=== PATIENT | female | born 1970 | race Caucasian/White ===

== ENCOUNTER 2022-06-25 12:02 | Emergency (ER) | payer BC, MEDICAID, OTHER ==
[~2022-06-25] VITALS: Ht 167.6 cm; Wt 74.8 kg
[~2022-06-25 12:02] MED LIST: [UNRECOGNIZED DRUG - CODE] PO
[2022-06-25 12:13] VITALS: BP 117/67
--- NOTE | 2022-06-25 12:17 | NUR ---
PT AMB TO BED 8.
--- NOTE | 2022-06-25 12:23 | NUR ---
DR WARREN AT BEDSIDE EVALUATING PT
[2022-06-25] MEDS ORDERED: KETOROLAC 60 MG/2 ML VIAL IM ONE (12:30)
[2022-06-25 12:49] LABS: BASOPHILS # (AUTO) 0.1 K/uL (0.00-0.22); BASOPHILS % (AUTO) 0.9 % (0.0-2.0); EOSINOPHILS # (AUTO) 0.2 K/uL (0-0.4); HEMATOCRIT 42.1 % (36-48); HEMOGLOBIN 14.3 g/dL (12.0-16.0); LYMPHOCYTES # (AUTO) 2.6 K/uL (2.5-16.5); LYMPHOCYTES % (AUTO) 35.1 % (20.5-51.1); MEAN CORPUSCULAR HEMOGLOBIN 30 pg (27-31); MEAN CORPUSCULAR HGB CONC 34 g/dL (33-37); MEAN CORPUSCULAR VOLUME 88.7 fL (80-94); MONOCYTES # (AUTO) 0.3 K/uL (0.8-1.0); MONOCYTES % (AUTO) 4.5 % (1.7-9.3); NEUTROPHILS # (AUTO) 4.2 K/uL (1.8-7.7); NEUTROPHILS % (AUTO) 56.5 % (42.2-75.2); PLATELET COUNT (AUTO) 274 K/uL (140-450); RED BLOOD CELL COUNT(AUTO) 4.75 MIL/uL (4.20-5.40); RED CELL DISTRIBUTION WIDTH 12.9 % (11.6-13.7); WHITE BLOOD COUNT (AUTO) 7.5 K/uL (4.8-10.8)
--- NOTE | 2022-06-25 13:00 | NUR ---
52YO FEMALE PT C/O INCREASED INTERMITTENT 8/10 CHEST PALPITATIONS XTODAY. STATES INITIAL ONSET X1WEEK. EPISODES LASTING 20MIN W/ RADIATION TO BACK. RELIEF AFTER TAKING RX GIVEN BY SON. DENIES RADIATION, N/V/D , SOB, FEVR OR CHILLS. PT AAOX4, RESPIRATIONS EVEN AND UNLABORED. 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 HX:DENIES NKA
[2022-06-25 13:09] LABS: ALBUMIN 3.2 g/dL (3.4-5.0); CARBON DIOXIDE 27.8 mmol/L (21-32); CREATININE 0.8 mg/dL (0.6-1.3); POTASSIUM 3.8 mmol/L (3.5-5.1); TOTAL BILIRUBIN 0.6 mg/dL (0.0-1.0)
[2022-06-25] MEDS ORDERED: NAPR-1704 PO (13:23)
[2022-06-25 13:38] VITALS: BP 117/67
--- NOTE | 2022-06-25 13:38 | NUR ---
Patient discharged with v/s stable. Written and verbal after care instructions FOR NON SPECIFIC CHEST PAIN given and explained. Patient alert, oriented and verbalized understanding of instructions. Ambulatory with steady gait. All questions addressed prior to discharge. ID band removed. Patient advised to follow up with PMD. Rx of NAPROXEN given. Opportunity to ask questions provided and answered.
--- NOTE | 2022-06-25 13:39 | NUR ---
The patient's care was reviewed and supervised by Gale Hendrix RN.
== END 2022-06-25 13:38 | disposition home or self-care (01) ==
LOC: MED 12:02
DX: R07.9 Chest pain, unspecified (principal)
CPT/HCPCS: 36415; 71045; 80053; 81002; 81025; 83880; 84484; 85025; 93005; 99285; Q0092; J1885

== ENCOUNTER 2022-07-02 15:14 | Inpatient (IN) | payer OTHER ==
[~2022-07-02] VITALS: Ht 160 cm; Wt 65.8 kg
[~2022-07-02 15:14] MED LIST changes: +NAPR-1704 PO
[2022-07-02 15:24] VITALS: BP 112/90
[2022-07-02 16:01] LABS: BASOPHILS # (AUTO) 0.1 K/uL (0.00-0.22); BASOPHILS % (AUTO) 1.5 % (0.0-2.0); EOSINOPHILS # (AUTO) 0.2 K/uL (0-0.4); EOSINOPHILS % (AUTO) 1.8 % (0.0-4.0); HEMOGLOBIN 16.6 g/dL (12.0-16.0); LYMPHOCYTES # (AUTO) 1.8 K/uL (2.5-16.5); LYMPHOCYTES % (AUTO) 20.6 % (20.5-51.1); MEAN CORPUSCULAR HEMOGLOBIN 31 pg (27-31); MEAN CORPUSCULAR HGB CONC 34 g/dL (33-37); MONOCYTES # (AUTO) 0.7 K/uL (0.8-1.0); MONOCYTES % (AUTO) 7.5 % (1.7-9.3); NEUTROPHILS # (AUTO) 6.1 K/uL (1.8-7.7); NEUTROPHILS % (AUTO) 68.6 % (42.2-75.2); PLATELET COUNT (AUTO) 364 K/uL (140-450); RED BLOOD CELL COUNT(AUTO) 5.44 MIL/uL (4.20-5.40); RED CELL DISTRIBUTION WIDTH 13.7 % (11.6-13.7); WHITE BLOOD COUNT (AUTO) 8.9 K/uL (4.8-10.8)
[2022-07-02 16:26] LABS: ALBUMIN 3.5 g/dL (3.4-5.0); ANION GAP 18.1 (8-16); CARBON DIOXIDE 26.5 mmol/L (21-32); CREATININE 0.6 mg/dL (0.6-1.3); POTASSIUM 3.6 mmol/L (3.5-5.1); TOTAL BILIRUBIN 16.5 mg/dL (0.0-1.0)
[2022-07-02] MEDS ORDERED: MORPHINE SULFATE 4 MG/ML SYR IVP PRN (21:35)
[2022-07-02] MEDS ORDERED: ACETAMINOPHEN 325 MG TAB PO PRN (21:35)
[2022-07-02] MEDS ORDERED: ONDANSETRON 4 MG/2 ML VIAL IVP PRN (21:35)
[2022-07-02] MEDS ORDERED: MAG SULF 2000 MG/WATER PREMIX 50 ML IV PRN (21:35)
[2022-07-02] MEDS ORDERED: POTASSIUM CHLORIDE 10 MEQ TABER PO PRN (21:35)
[2022-07-02] MEDS ORDERED: HYDROcodone/APAP 5/325 MG 1 TAB TAB PO PRN (21:35)
[2022-07-02] MEDS ORDERED: MAGNESIUM OXIDE 400 MG TAB PO PRN (21:35)
[2022-07-02] MEDS ORDERED: KCL 20 MEQ/WATER INJ PREMIX 200 ML IV PRN (21:35)
[2022-07-02] MEDS: NACL 0.9% 1,000 ML IV SCH (22:38)
[2022-07-03 07:46] LABS: BASOPHILS # (AUTO) 0.2 K/uL (0.00-0.22); BASOPHILS % (AUTO) 2.9 % (0.0-2.0); EOSINOPHILS # (AUTO) 0.2 K/uL (0-0.4); EOSINOPHILS % (AUTO) 3.3 % (0.0-4.0); HEMATOCRIT 43.3 % (36-48); HEMOGLOBIN 14.7 g/dL (12.0-16.0); LYMPHOCYTES # (AUTO) 1.8 K/uL (2.5-16.5); LYMPHOCYTES % (AUTO) 25.8 % (20.5-51.1); MEAN CORPUSCULAR HEMOGLOBIN 30 pg (27-31); MEAN CORPUSCULAR HGB CONC 34 g/dL (33-37); MONOCYTES # (AUTO) 0.6 K/uL (0.8-1.0); MONOCYTES % (AUTO) 8.3 % (1.7-9.3); NEUTROPHILS # (AUTO) 4.2 K/uL (1.8-7.7); NEUTROPHILS % (AUTO) 59.7 % (42.2-75.2); PLATELET COUNT (AUTO) 308 K/uL (140-450); RED BLOOD CELL COUNT(AUTO) 4.86 MIL/uL (4.20-5.40); RED CELL DISTRIBUTION WIDTH 13.9 % (11.6-13.7); WHITE BLOOD COUNT (AUTO) 7.1 K/uL (4.8-10.8)
[2022-07-03] MEDS ORDERED: SUCCINYLCHOLINE CHLORIDE 200 MG/10 ML VIAL IVP ONE ×2 (08:56→09:00)
[2022-07-03] MEDS ORDERED: MIDAZOLAM 2 MG/2 ML VIAL ONE ×2 (08:56→09:00)
[2022-07-03] MEDS ORDERED: PROPOFOL 200 MG/20 ML VIAL IV ONE ×2 (08:56→09:00)
[2022-07-03] MEDS ORDERED: fentaNYL citrate 0.05 MG/ML VIAL ONE (08:56)
[2022-07-03] MEDS ORDERED: GLUCAGON 1 MG VIAL ONE ×2 (09:00→09:34)
[2022-07-03] MEDS ORDERED: SEVOFLURANE 250 ML BTL INH ONE (09:00)
[2022-07-03] MEDS ORDERED: DEXAMETHASONE 4 MG/ML VIAL ONE (09:00)
[2022-07-03 09:38] LABS: CARBON DIOXIDE 24.6 mmol/L (21-32); CREATININE 0.5 mg/dL (0.6-1.3); POTASSIUM 3.6 mmol/L (3.5-5.1)
[2022-07-03 09:39] LABS: ALBUMIN 2.8 g/dL (3.4-5.0); TOTAL BILIRUBIN 14.1 mg/dL (0.0-1.0)
[2022-07-03] MEDS: NACL 0.9% 1,000 ML IV SCH (10:05)
[2022-07-03 12:00] VITALS: BP 121/62
[2022-07-03 13:05] LABS: MAGNESIUM 1.9 mg/dL (1.8-2.4)
[2022-07-04] VITALS: BP 115/59
[2022-07-04] MEDS: NACL 0.9% 1,000 ML IV SCH ×3 (00:32→23:23)
[2022-07-04 04:00] VITALS: BP 110/50
[2022-07-04 07:40] LABS: BASOPHILS # (AUTO) 0.1 K/uL (0.00-0.22); BASOPHILS % (AUTO) 1.5 % (0.0-2.0); EOSINOPHILS # (AUTO) 0.2 K/uL (0-0.4); EOSINOPHILS % (AUTO) 2.1 % (0.0-4.0); HEMATOCRIT 38.6 % (36-48); HEMOGLOBIN 13.2 g/dL (12.0-16.0); LYMPHOCYTES % (AUTO) 31.2 % (20.5-51.1); MEAN CORPUSCULAR HEMOGLOBIN 31 pg (27-31); MEAN CORPUSCULAR HGB CONC 34 g/dL (33-37); MEAN CORPUSCULAR VOLUME 90.3 fL (80-94); MONOCYTES # (AUTO) 0.6 K/uL (0.8-1.0); MONOCYTES % (AUTO) 6.6 % (1.7-9.3); NEUTROPHILS # (AUTO) 5.7 K/uL (1.8-7.7); NEUTROPHILS % (AUTO) 58.6 % (42.2-75.2); PLATELET COUNT (AUTO) 291 K/uL (140-450); RED BLOOD CELL COUNT(AUTO) 4.27 MIL/uL (4.20-5.40); RED CELL DISTRIBUTION WIDTH 13.9 % (11.6-13.7); WHITE BLOOD COUNT (AUTO) 9.8 K/uL (4.8-10.8)
[2022-07-04 08:00] VITALS: BP 125/64
[2022-07-04 08:28] LABS: ALBUMIN 2.5 g/dL (3.4-5.0); CARBON DIOXIDE 26.8 mmol/L (21-32); CREATININE 0.7 mg/dL (0.6-1.3); MAGNESIUM 1.7 mg/dL (1.8-2.4); POTASSIUM 3.8 mmol/L (3.5-5.1); TOTAL BILIRUBIN 7.4 mg/dL (0.0-1.0)
[2022-07-04 16:00] VITALS: BP 103/65
[2022-07-05 01:29] VITALS: BP 107/52
[2022-07-05 07:46] LABS: BASOPHILS # (AUTO) 0.2 K/uL (0.00-0.22); BASOPHILS % (AUTO) 3.1 % (0.0-2.0); EOSINOPHILS # (AUTO) 0.3 K/uL (0-0.4); EOSINOPHILS % (AUTO) 3.9 % (0.0-4.0); HEMATOCRIT 38.6 % (36-48); HEMOGLOBIN 13.2 g/dL (12.0-16.0); LYMPHOCYTES # (AUTO) 2.4 K/uL (2.5-16.5); LYMPHOCYTES % (AUTO) 33.3 % (20.5-51.1); MEAN CORPUSCULAR HEMOGLOBIN 31 pg (27-31); MEAN CORPUSCULAR HGB CONC 34 g/dL (33-37); MEAN CORPUSCULAR VOLUME 89.7 fL (80-94); MONOCYTES # (AUTO) 0.5 K/uL (0.8-1.0); MONOCYTES % (AUTO) 7.3 % (1.7-9.3); NEUTROPHILS # (AUTO) 3.7 K/uL (1.8-7.7); NEUTROPHILS % (AUTO) 52.4 % (42.2-75.2); PLATELET COUNT (AUTO) 286 K/uL (140-450); RED BLOOD CELL COUNT(AUTO) 4.31 MIL/uL (4.20-5.40); RED CELL DISTRIBUTION WIDTH 13.6 % (11.6-13.7); WHITE BLOOD COUNT (AUTO) 7.1 K/uL (4.8-10.8)
[2022-07-05 08:00] VITALS: BP 113/57
[2022-07-05 08:26] LABS: ALBUMIN 2.5 g/dL (3.4-5.0); CARBON DIOXIDE 26.6 mmol/L (21-32); CREATININE 0.6 mg/dL (0.6-1.3); MAGNESIUM 1.8 mg/dL (1.8-2.4); POTASSIUM 3.6 mmol/L (3.5-5.1); TOTAL BILIRUBIN 5.4 mg/dL (0.0-1.0)
[2022-07-05] MEDS: NACL 0.9% 1,000 ML IV SCH (12:05)
[2022-07-05 15:06] VITALS: BP 113/57
== END 2022-07-05 16:54 | disposition home or self-care (01) ==
LOC: MED 15:14 → MMU 21:36 → MTU 07-03 11:20
PROVIDERS: ADMIT Hospitalist; ATTEND Hospitalist
PROC: 0F798ZZ Dilation of Common Bile Duct, Via Natural or Artificial Opening Endoscopic (ICD-10-PCS; 2022-07-03)
PROC: BF101ZZ Fluoroscopy of Bile Ducts using Low Osmolar Contrast (ICD-10-PCS; 2022-07-03)
PROC: 0FC98ZZ Extirpation of Matter from Common Bile Duct, Via Natural or Artificial Opening Endoscopic (ICD-10-PCS; principal; 2022-07-03 09:00)
DX: K80.51 Calculus of bile duct without cholangitis or cholecystitis with obstruction (principal); E87.1 Hypo-osmolality and hyponatremia; E87.8 Other disorders of electrolyte and fluid balance, not elsewhere classified; Z20.822 Contact with and (suspected) exposure to COVID-19; R74.01 Elevation of levels of liver transaminase levels; E80.6 Other disorders of bilirubin metabolism; Z90.49 Acquired absence of other specified parts of digestive tract
CPT/HCPCS: 36415; 74330; 76705; 80053; 83690; 83735; 85025; 87081; 99285; C1727; C1769; C1773; J0330; J1100; J1610; J2250; J2270; J2704; J3010; Q0092; Q9967

== ENCOUNTER 2022-08-14 15:50 | Emergency (ER) | payer OTHER ==
[~2022-08-14] VITALS: Ht 157.5 cm; Wt 69.9 kg
[2022-08-14 16:00] VITALS: BP 130/76
[2022-08-14] MEDS ORDERED: DICYCLOMINE HCL LIQUID 20 MG, ALUMINUM HYD/MAG/SIMETHICONE 30 ML, LIDOCAINE VISCOUS 2% ... PO ONE ×3 (16:10)
[2022-08-14] MEDS ORDERED: ALUMINUM HYD/MAG/SIMETHICONE 30 ML UDC ONE (16:13)
[2022-08-14] MEDS ORDERED: DICYCLOMINE HCL LIQUID 10 MG/5 ML UDC ONE (16:13)
--- NOTE | 2022-08-14 16:16 | NUR ---
PT AMBULATED TO BED 12
[2022-08-14 16:44] LABS: BASOPHILS # (AUTO) 0.1 K/uL (0.00-0.22); BASOPHILS % (AUTO) 1.1 % (0.0-2.0); EOSINOPHILS # (AUTO) 0.2 K/uL (0-0.4); EOSINOPHILS % (AUTO) 2.7 % (0.0-4.0); HEMOGLOBIN 14.6 g/dL (12.0-16.0); LYMPHOCYTES # (AUTO) 3.6 K/uL (2.5-16.5); LYMPHOCYTES % (AUTO) 41.1 % (20.5-51.1); MEAN CORPUSCULAR HEMOGLOBIN 30 pg (27-31); MEAN CORPUSCULAR HGB CONC 36 g/dL (33-37); MEAN CORPUSCULAR VOLUME 85.7 fL (80-94); MONOCYTES # (AUTO) 0.5 K/uL (0.8-1.0); MONOCYTES % (AUTO) 5.8 % (1.7-9.3); NEUTROPHILS # (AUTO) 4.3 K/uL (1.8-7.7); NEUTROPHILS % (AUTO) 49.3 % (42.2-75.2); PLATELET COUNT (AUTO) 323 K/uL (140-450); RED BLOOD CELL COUNT(AUTO) 4.79 MIL/uL (4.20-5.40); WHITE BLOOD COUNT (AUTO) 8.7 K/uL (4.8-10.8)
[2022-08-14 17:07] LABS: ALBUMIN 4.3 g/dL (3.4-5.0); ANION GAP 14.1 (8-16); CARBON DIOXIDE 29.8 mmol/L (21-32); CREATININE 0.8 mg/dL (0.6-1.3); POTASSIUM 3.9 mmol/L (3.5-5.1); TOTAL BILIRUBIN 1.2 mg/dL (0.0-1.0)
--- NOTE | 2022-08-14 17:21 | NUR ---
Pt bib family for abd pain. Pain is constant and worse with movement. 8/10, sharp, intermittent, radiates throughout abd. Pt states she felt this pain before with a dx cholelithaiasis. No abnormalities in urination. Pt a/o x 4, vss, no ss of acute distress, breathing equal and unlabored. Pt on monitor with call light in reach.
[2022-08-14 18:27] VITALS: BP 111/60
[2022-08-14 18:55] LABS: BILIRUBIN,URINE NEGATIVE (NEGATIVE); BLOOD, URINE NEGATIVE (NEGATIVE); COLOR,URINE YELLOW (YELLOW); LEUKOCYTE ESTERASE ,URINE 2+ (NEGATIVE); NITRITE, URINE NEGATIVE (NEGATIVE); UGLUCOSE NEGATIVE (NEGATIVE)
[2022-08-14 19:07] LABS: APPEARANCE,URINE HAZY (CLEAR)
[2022-08-14 19:17] LABS: RBC,URINE NONE SEEN /HPF (0-5)
[2022-08-14] MEDS ORDERED: FAMO-92 PO (19:23)
[2022-08-14] MEDS ORDERED: CEPH-588 PO (19:23)
--- NOTE | 2022-08-14 20:01 | NUR ---
Patient discharged with v/s stable. Written and verbal after care instructions given and explained. Patient alert, oriented and verbalized understanding of instructions. Ambulatory with steady gait. All questions addressed prior to discharge. ID band removed. Patient advised to follow up with PMD. Rx of KELFEX AND PEPCID given. Patient educated on indication of medication including possible reaction and side effects. Opportunity to ask questions provided and answered.
== END 2022-08-14 22:21 | disposition home or self-care (01) ==
LOC: MED 15:50
DX: K29.70 Gastritis, unspecified, without bleeding (principal); N39.0 Urinary tract infection, site not specified
CPT/HCPCS: 36415; 76705; 80053; 81001; 83690; 85025; 87086; 99284; Q0092

== ENCOUNTER 2022-08-15 08:17 | Inpatient (IN) | payer OTHER ==
[~2022-08-15] VITALS: Ht 154.9 cm; Wt 68.5 kg
[~2022-08-15 08:17] MED LIST changes: +CEPH-588 PO; +FAMO-92 PO; -NAPR-1704 PO; -[UNRECOGNIZED DRUG - CODE] PO
[2022-08-15 08:25] VITALS: BP 143/72
[2022-08-15] MEDS ORDERED: MORPHINE SULFATE 4 MG/ML SYR IVP ONE (08:40)
--- NOTE | 2022-08-15 08:54 | NUR ---
Lab at bedside
[2022-08-15 09:07] LABS: APPEARANCE,URINE CLEAR (CLEAR); BILIRUBIN,URINE NEGATIVE (NEGATIVE); BLOOD, URINE NEGATIVE (NEGATIVE); COLOR,URINE YELLOW (YELLOW); LEUKOCYTE ESTERASE ,URINE NEGATIVE (NEGATIVE); NITRITE, URINE NEGATIVE (NEGATIVE); UGLUCOSE 3+ (NEGATIVE)
[2022-08-15 09:11] LABS: BASOPHILS # (AUTO) 0.1 K/uL (0.00-0.22); BASOPHILS % (AUTO) 0.9 % (0.0-2.0); EOSINOPHILS % (AUTO) 0.3 % (0.0-4.0); HEMATOCRIT 40.3 % (36-48); HEMOGLOBIN 14.2 g/dL (12.0-16.0); LYMPHOCYTES # (AUTO) 1.2 K/uL (2.5-16.5); LYMPHOCYTES % (AUTO) 12.2 % (20.5-51.1); MEAN CORPUSCULAR HEMOGLOBIN 30 pg (27-31); MEAN CORPUSCULAR HGB CONC 35 g/dL (33-37); MONOCYTES # (AUTO) 0.1 K/uL (0.8-1.0); MONOCYTES % (AUTO) 1.5 % (1.7-9.3); NEUTROPHILS # (AUTO) 8.2 K/uL (1.8-7.7); NEUTROPHILS % (AUTO) 85.1 % (42.2-75.2); PLATELET COUNT (AUTO) 330 K/uL (140-450); RED BLOOD CELL COUNT(AUTO) 4.69 MIL/uL (4.20-5.40); RED CELL DISTRIBUTION WIDTH 13.7 % (11.6-13.7); WHITE BLOOD COUNT (AUTO) 9.7 K/uL (4.8-10.8)
--- NOTE | 2022-08-15 09:14 | NUR ---
52 y/o F BIB self from home c/o epigastric pain x 2 days. A&Ox4, ambulatory, patient states 05/14, burning/constant, non-radiating pain to epigastric region. Tenderness to palp. Patient with associated nausea, vomiting. Denies diarrhea, constipation, chest pain, dizziness, headache, SOB. Pt seen at [facility] dischraged with RX pain medication, however, states "did not think it will work." visual effects artist in place. Bed locked in lowest position, side rails x1. PMH: cholecystectomy Meds: keflex NKDA
[2022-08-15 09:35] LABS: ALBUMIN 3.9 g/dL (3.4-5.0); ANION GAP 15.6 (8-16); CARBON DIOXIDE 25.9 mmol/L (21-32); CREATININE 0.8 mg/dL (0.6-1.3); POTASSIUM 3.5 mmol/L (3.5-5.1); TOTAL BILIRUBIN 2.9 mg/dL (0.0-1.0)
--- NOTE | 2022-08-15 09:59 | NUR ---
Pt to CT via norberto
--- NOTE | 2022-08-15 10:07 | NUR ---
Pt returned from CT
--- NOTE | 2022-08-15 10:08 | NUR ---
EMT at bedside for EKG
--- NOTE | 2022-08-15 11:02 | NUR ---
Pt states increased pain 05/14. Dr. Paula notified and order to be placed.
[2022-08-15] MEDS ORDERED: KETOROLAC 15 MG/ML VIAL IVP ONE (11:05)
--- NOTE | 2022-08-15 12:58 | NUR ---
Patient resting in position of comfort. monitor technician in place. Bed locked in lowest position, side rails x 1.
[2022-08-15] MEDS ORDERED: LORazepam 2 MG/ML VIAL IVP PRN (14:40)
[2022-08-15] MEDS ORDERED: ACETAMINOPHEN 325 MG TAB PO PRN (14:40)
[2022-08-15] MEDS ORDERED: ONDANSETRON 4 MG/2 ML VIAL IVP PRN (14:40)
--- NOTE | 2022-08-15 14:46 | NUR ---
Patient resting in high-fowlers position with monitoring manager in place. VSS. SpO2 noted at 91% on room air; placed on 2L NC. Patient denies respiratory distress. Bed locked in lowest position, side rails x 1.
--- NOTE | 2022-08-15 16:02 | NUR ---
Patient resting in position of comfort. belt conveyor drier in place. Patient denies pain at this time. Bed locked in lowest position, side rails x 1.
[2022-08-15] MEDS ORDERED: PIPERACILLIN/TAZOBACTAM 3.375 GM VIAL IV ONE ×2 (16:20→21:14)
[2022-08-15] MEDS: NACL 0.9% 1,000 ML IV SCH (16:28)
[2022-08-15] MEDS: PIPERACILLIN/TAZOBACTAM 3.375 GM in DEXTROSE 5% 50 ML IV SCH ×2 (16:28→21:29)
--- NOTE | 2022-08-15 18:26 | NUR ---
Pt in semi-fowlers position. 3rd pressman in place. Denies pain at this time. Bed locked in lowest position, side rails x 1.
--- NOTE | 2022-08-15 19:14 | NUR ---
Pt requesting pain medication for right lower back pain 01/12. PRN orders to be given.
[2022-08-15] MEDS: MORPHINE SULFATE 2 MG/ML SYR IVP PRN (19:19)
--- NOTE | 2022-08-15 19:25 | NUR ---
Report and transfer of care endorsed to BENEDICT Alonso and STEVE Linares.
--- NOTE | 2022-08-15 19:40 | NUR ---
52 Y/O F PRESENTS WITH DIAGNOSIS OF TRANSAMINITIS. STATES SHE HAS NO PAIN. PT IS NPO, AND TACHY. PT IS a&oX4 AND DANISH SPEAKING ONLY AND AMBULATORY. PMH-CHOLECYSTECTOMY NKA
--- NOTE | 2022-08-15 21:19 | NUR ---
PT AMBULATORY TO RESTROOM
--- NOTE | 2022-08-15 21:23 | NUR ---
PT AMBULATED BACK TO FROM RESTROOM, BACK ON WEEKDAY BABYSITTER
--- NOTE | 2022-08-15 21:53 | NUR ---
Patient will be admitted to care of DR. LA. Admited to MED SURG. Will go to [id number]. Belongings list completed. Report to ROLANDO WILSON.
--- NOTE | 2022-08-15 22:05 | NUR ---
RECEIVED PT FROM ER[facility], CAME IN VIA WHEELCHAIR, ADMITTED TO ROOM 125B. AWAKE, ALERT AND VERBALLY RESPONSIVE IN [place]. PT IS CHIEF COMPLAINTS OF EPIGASTRIC PAIN AND BURNING PAIN ASSOCIATED WITH NAUSEA/VOMITING, DIAGNOSIS: TRANSAMINITIS, HYPONATREMIA, HYPERBILIRUBINEMIA WITH HISTORY OF CHOLECYSTECTOMY. PT IS WITH NO KNOWN ALLERGY. SHE IS A FULL CODE AND AMBULATORY INDEPENDENTLY. PT IS NPO AT THIS TIME. IV SITE IS AT RIGHT AC 20G WITH NORMAL SALINE INFUSING WELL AT 100ML/HR. PT IS ON STANDARD ISOLATION.
[2022-08-16] MEDS: MORPHINE SULFATE 2 MG/ML SYR IVP PRN ×3 (00:36→15:41)
--- NOTE | 2022-08-16 00:36 | NUR ---
PT COMPLAINTS OF PAIN ON ABDOMEN AND BACK /, PAIN MEDICATION MORPHINE ADMINISTERED ORDER. PT TOLERATES WELL.
[2022-08-16] MEDS: NACL 0.9% 1,000 ML IV SCH ×3 (00:40→21:30)
--- NOTE | 2022-08-16 01:30 | NUR ---
PT IS ASLEEP.
--- NOTE | 2022-08-16 01:36 | NUR ---
PT IS SLEEPING WELL, NO FACIAL GRIMACING. NO SOB OR DISTRESS.
[2022-08-16 04:00] VITALS: BP 126/74
[2022-08-16] MEDS ORDERED: PIPERACILLIN/TAZOBACTAM 3.375 GM VIAL IV ONE (04:59)
--- NOTE | 2022-08-16 05:00 | NUR ---
PT IS SLEEPING.
[2022-08-16 05:36] LABS: BASOPHILS % (AUTO) 0.2 % (0.0-2.0); HEMATOCRIT 38.2 % (36-48); HEMOGLOBIN 13.4 g/dL (12.0-16.0); LYMPHOCYTES # (AUTO) 0.3 K/uL (2.5-16.5); LYMPHOCYTES % (AUTO) 3.5 % (20.5-51.1); MEAN CORPUSCULAR HEMOGLOBIN 30 pg (27-31); MEAN CORPUSCULAR HGB CONC 35 g/dL (33-37); MEAN CORPUSCULAR VOLUME 86.4 fL (80-94); MONOCYTES # (AUTO) 0.4 K/uL (0.8-1.0); MONOCYTES % (AUTO) 4.6 % (1.7-9.3); NEUTROPHILS # (AUTO) 8.4 K/uL (1.8-7.7); NEUTROPHILS % (AUTO) 91.7 % (42.2-75.2); PLATELET COUNT (AUTO) 236 K/uL (140-450); RED BLOOD CELL COUNT(AUTO) 4.43 MIL/uL (4.20-5.40); RED CELL DISTRIBUTION WIDTH 14.1 % (11.6-13.7); WHITE BLOOD COUNT (AUTO) 9.1 K/uL (4.8-10.8)
[2022-08-16] MEDS: PIPERACILLIN/TAZOBACTAM 3.375 GM in DEXTROSE 5% 50 ML IV SCH ×3 (05:57→21:42)
[2022-08-16 06:34] LABS: ALBUMIN 3.5 g/dL (3.4-5.0); ANION GAP 16.5 (8-16); CREATININE 0.8 mg/dL (0.6-1.3); MAGNESIUM 1.9 mg/dL (1.8-2.4); POTASSIUM 3.5 mmol/L (3.5-5.1); TOTAL BILIRUBIN 6.3 mg/dL (0.0-1.0)
--- NOTE | 2022-08-16 07:25 | NUR ---
PT IS ON STABLE CONDITION, NO COMPLAINT OF PAIN OR DISCOMFORT. ALL SAFETY MEASURES ARE IN PLACE. ENDORSED TO DAY SHIFT NURSE FOR CONTINUITY OF CARE.
[2022-08-16 08:00] VITALS: BP 106/49
--- NOTE | 2022-08-16 08:00 | NUR ---
RECEIVED REPORT FROM FABRIC DESIGNER FOR CONTINUITY OF CARE. PATIENT ALERT AWAKE ORIENTED X4, NOT IN ANY DISTRESS NOTED. WITH IVF ON GOING AND INFUSING WELL. C/O LOWER ABDOMINAL PAIN. CALL LIGHT WITHIN REACH. WILL CONTINUE TO MONITOR.
--- NOTE | 2022-08-16 09:26 | NUR ---
PATIENT HAS BEEN SCREENED AND CATEGORIZED MODERATE NUTRITION RISK. PATIENT WILL BE SEEN WITHIN 3-5 DAYS OF ADMISSION. REVIEWED BY TALISHA HERNÁNDEZ RD
--- NOTE | 2022-08-16 09:44 | NUR ---
PATIENT MEDICATED WITH MORPHINE ORDER. WILL CONTINUE TO MONITOR.
--- NOTE | 2022-08-16 13:02 | NUR ---
REPORT GIVEN TO KALA FOR CONTINUITY OF CARE. PATIENT IN STABLE CONDITION.
--- NOTE | 2022-08-16 14:00 | NUR ---
DISCHARGE PLANNING PATIENT IS A 52-YEAR-OLD FEMALE ADMITTED AT THE [facility]/ED ON 08/15/2022 DUE TO TRANSAMIMINITIS. SW MET WITH PATIENT AT BEDSIDE TO DISCUSS AND GATHER PATIENT'S COLLATERAL INFORMATION. PATIENT WAS AWAKE AND ALERT ABLE TO PROVIDE HER OWN INFORMATION, PATIENT IS NIUEAN SPEAKING ONLY AND REPORTED LIVING AT HOME WITH HER SONS 14 YEAR OLD, 19 YEAR OLD AND 26 YEAR OLD MOSHE [phone] WHO IS HER EMERGENCY CONTACT AND MEDICAL DECISION MAKER. PER PATIENT SHE HAS GOOD FAMILY SUPPORT. PATIENT STATED NOT HAVING ADVANCE DIRECTIVES AND WAS NOT INTERESTED ON GETTING INF. FORMS PROVIDED BY [facility]. PATIENT REPORTED BEEN ACTIVE AND INDEPENDENT AT HOME BEFORE HOSPITALIZATION PATIENT ALSO REPORTED NOT HAVING ANY ISSUES TAKING OR GETTING HER MEDICATIONS FROM [facility] IN [facility]. PATIENT STATED NOT HAVING ANY DME AT HOME. PER PATIENT SHE HAS PCP DR. ERNST; SHE DO NOT KNOW WHO IS HER PCP AND REPORTED THAT SHE WILL GET INFORMATION AND WILL MAKE HER OWN FOLLOW UP APPOINTMENT AFTER SHE IS DISCHARGE. [facility] EXPLAINED TO PATIENT THE NEED TO SCHEDULED A FOLLOW UP APPOINTMENT WITH PCP WITHIN 5-7 DAYS. PATIENT STATED THAT HER SON WILL BE ASSISTING HER WITH TRANSPORTATION BACK HOME WHEN SHE IS READY AND STABLE FOR DISCHARGE. SW/CM WILL FOLLOW NEEDED.
[2022-08-16 16:00] VITALS: BP 110/50
--- NOTE | 2022-08-16 21:42 | NUR ---
ADMINISTERED SCHEDULED DUE MEDICATION.
--- NOTE | 2022-08-16 22:05 | NUR ---
PATIENT IS AWAKE ALERT ORIENTED. NO DISTRESS, ON ROOM AIR. NO COMPLAINTS OF PAIN AT THIS TIME. IVF NS INFUSING AT 100 ML/HR ON THE LAC 20 GAUGE. ABLE TO COMMUNICATE WITH HER NEEDS. CALL LIGHT WITHIN REACH. SAFETY MEASURES IN PLACE. NEEDS ATTENDED AND MET.
[2022-08-16 22:55] LABS: PROTHROMBIN TIME 13.6 secs (10.8-13.4)
[2022-08-17] VITALS: BP 116/61
[2022-08-17] MEDS: PIPERACILLIN/TAZOBACTAM 3.375 GM in DEXTROSE 5% 50 ML IV SCH ×3 (04:46→20:20)
[2022-08-17 06:08] LABS: BASOPHILS % (AUTO) 0.5 % (0.0-2.0); EOSINOPHILS % (AUTO) 0.1 % (0.0-4.0); HEMATOCRIT 33.5 % (36-48); LYMPHOCYTES # (AUTO) 0.7 K/uL (2.5-16.5); LYMPHOCYTES % (AUTO) 9.1 % (20.5-51.1); MEAN CORPUSCULAR HEMOGLOBIN 31 pg (27-31); MEAN CORPUSCULAR HGB CONC 36 g/dL (33-37); MEAN CORPUSCULAR VOLUME 85.7 fL (80-94); MONOCYTES # (AUTO) 0.5 K/uL (0.8-1.0); MONOCYTES % (AUTO) 5.7 % (1.7-9.3); NEUTROPHILS % (AUTO) 84.6 % (42.2-75.2); PLATELET COUNT (AUTO) 173 K/uL (140-450); RED BLOOD CELL COUNT(AUTO) 3.91 MIL/uL (4.20-5.40); RED CELL DISTRIBUTION WIDTH 13.9 % (11.6-13.7); WHITE BLOOD COUNT (AUTO) 8.2 K/uL (4.8-10.8)
[2022-08-17 06:59] LABS: ALBUMIN 2.9 g/dL (3.4-5.0); ANION GAP 13.9 (8-16); CARBON DIOXIDE 22.5 mmol/L (21-32); CREATININE 0.7 mg/dL (0.6-1.3); POTASSIUM 3.4 mmol/L (3.5-5.1); TOTAL BILIRUBIN 5.8 mg/dL (0.0-1.0)
--- NOTE | 2022-08-17 07:18 | NUR ---
GAVE REPORT TO DAY SHIFT NURSE ADZE FOR CONTINUITY OF CARE.
[2022-08-17 08:00] VITALS: BP 100/53
--- NOTE | 2022-08-17 08:00 | NUR ---
PATIENT RECEIVED IN BED, A/OX4, NOT IN ANY FORM OF DISTRESS. DENIES ANY PAIN AT THIS TIME. ASSESSMENT DONE AND DOCUMENTED. PLAN OF CARE DISCUSSED. CALL LIGHT WITHIN REACH.
[2022-08-17] MEDS: NACL 0.9% 1,000 ML IV SCH ×2 (09:03→17:15)
[2022-08-17] MEDS ORDERED: POTASSIUM CHLORIDE 40 MEQ, LIDOCAINE 1% 25 MG in NACL 0.9% 250 ML IV SCH (09:30)
[2022-08-17] MEDS ORDERED: LIDOCAINE 1% 500 MG/50 ML VIAL ONE (14:28)
[2022-08-17] MEDS ORDERED: BUPIVACAINE-MPF/EPI 0.25% 10 ML VIAL INJ ONE (14:28)
[2022-08-17 16:00] VITALS: BP 137/75
[2022-08-17] MEDS: MORPHINE SULFATE 2 MG/ML SYR IVP PRN (17:24)
--- NOTE | 2022-08-17 20:10 | NUR ---
PATIENT IN BED AWAKE RESTING COMFORTABLY IN BED. NO SOB ON ROOM AIR. NO COMPLAINTS OF PAIN. AFEBRILE. CALL LIGHT WITHIN REACH. REMINDED PATIENT TO BE NPO POST MIDNIGHT WITH UNDERSTANDING. FAMILY MEMBER AT BEDSIDE.
--- NOTE | 2022-08-17 20:20 | NUR ---
ADMINISTERED SCHEDULED DUE MEDICATION.
[2022-08-18] VITALS: BP 125/77
[2022-08-18] MEDS: NACL 0.9% 1,000 ML IV SCH ×3 (02:40→22:40)
[2022-08-18] MEDS: PIPERACILLIN/TAZOBACTAM 3.375 GM in DEXTROSE 5% 50 ML IV SCH ×3 (05:03→20:15)
[2022-08-18] MEDS: MORPHINE SULFATE 2 MG/ML SYR IVP PRN ×3 (05:23→18:06)
--- NOTE | 2022-08-18 07:43 | NUR ---
RECEIVED REPORT FROM TYPEWRITER ASSEMBLY AND PARTS INSPECTOR NURSE FABRICE FOR CONTINUITY OF CARE. PT SLEEPING, EASILY AROUSABLE BY VERBAL STIMULI. RESPIRATIONS EVEN AND UNLABORED ON RA. PT NPO, PT AWARE AND NPO SIGN PLACED ON THE DOOR. IV SITE ON LAC 20G INFUSING IVF. CALL LIGHT WITHIN REACH. SAFETY PRECAUTIONS IN PLACE.
--- NOTE | 2022-08-18 07:43 | NUR ---
ENDORSED TO AM NURSE FOR CONTINUITY OF CARE. PATIENT STABLE. FOR ERCP UNDER DR GOETZ TODAY. PRE OP CHECKLIST DONE.
--- NOTE | 2022-08-18 07:45 | NUR ---
PT PICKED UP BY OR NURSE FOR ERCP. PT IS IN STABLE CONDITION.
[2022-08-18 08:00] VITALS: BP 137/66
[2022-08-18] MEDS ORDERED: PROPOFOL 200 MG/20 ML VIAL IV ONE ×2 (08:40)
--- NOTE | 2022-08-18 09:25 | NUR ---
PT BACK FROM OR. V/S 137/66,59,98.6,17,97%RA. PT CLOSELY MONITORED.
[2022-08-18] MEDS ORDERED: POTASSIUM CHLORIDE 10 MEQ TABER PO SCH (14:15)
--- NOTE | 2022-08-18 14:38 | NUR ---
POTASSIUM CHLORIDE 60 MEQ GIVEN PER POTASSIUM 3.4. PT WAS SEEN BY DR. LA. FAMILY MEMBER AT BEDSIDE.
[2022-08-18 16:00] VITALS: BP 132/70
[2022-08-18 16:27] LABS: ALBUMIN 2.8 g/dL (3.4-5.0); ANION GAP 17.9 (8-16); CARBON DIOXIDE 21.4 mmol/L (21-32); CREATININE 0.6 mg/dL (0.6-1.3); POTASSIUM 4.3 mmol/L (3.5-5.1); TOTAL BILIRUBIN 8.6 mg/dL (0.0-1.0)
--- NOTE | 2022-08-18 19:14 | NUR ---
ENDORSED TO NIGHT NURSE FABRICE WILSON, FOR CONTINUITY OF CARE. ALL NEEDS MET THROUGH OUT SHIFT. PATIENT STABLE AT THIS TIME.
--- NOTE | 2022-08-18 20:15 | NUR ---
SCHEDULED MEDICATION ADMINISTERED PER MD ORDER.
[2022-08-19] VITALS: BP 133/73
[2022-08-19] MEDS: MORPHINE SULFATE 2 MG/ML SYR IVP PRN ×2 (02:52→14:44)
--- NOTE | 2022-08-19 02:52 | NUR ---
PATIENT COMPLAINED OF SEVERE ABDOMINAL PAIN, MEDICATED. PT ALERT ORIENTED ON ROOM AIR. NO SOB. BREATHING REGULAR NON LABORED. NO FEVER. CALL LIGHT WITHIN REACH. NEEDS ATTENDED AND MET.
[2022-08-19] MEDS: PIPERACILLIN/TAZOBACTAM 3.375 GM in DEXTROSE 5% 50 ML IV SCH ×3 (04:25→21:07)
--- NOTE | 2022-08-19 07:09 | NUR ---
GAVE REPORT TO NURSE ROOT FOR CONTINUITY OF CARE. PATIENT STABLE. Addendum: 08/19/22 at 0734 by Lauren Swenson RN RN GAVE REPORT TO DAY SHIFT NURSE MACK FOR CONTINUITY OF CARE. PATIENT STABLE.
--- NOTE | 2022-08-19 07:30 | NUR ---
RECEIVED REPORT FROM NIGHTSHIFT NURSE, FABRICE. PT A/O X4. TAJIK SPEAKING, LITTLE OCCITAN. NO SOB OR RESPIRATORY DISTRESS. ON RA. DENIES PAIN. CLEAR LIQUID DIET. NS @ 100 ML/HR ON LAC #20. NEEDS ALL MET AT THIS TIME. ALL SAFETY MEASURES IN PLACE.
[2022-08-19 08:00] VITALS: BP 121/68
[2022-08-19] MEDS: NACL 0.9% 1,000 ML IV SCH ×2 (08:54→17:43)
--- NOTE | 2022-08-19 14:45 | NUR ---
PRN PAIN MED ADMINISTERED. SEE PAIN ASSESSMENT.
[2022-08-19 16:00] VITALS: BP 122/84
--- NOTE | 2022-08-19 19:17 | NUR ---
REPORT GIVEN TO NIGHTSWAFT NURSEFATEMEH FOR CONTINUITY OF CARE.
--- NOTE | 2022-08-19 19:18 | NUR ---
RECEIVED REPORT FROM DAY SHIFT NURSE FREDERICK FOR CONTINUITY OF CARE. PT AWAKE IN BED WITH FAMILY MEMBER AT BEDSIDE. RESPIRATIONS EVEN AND UNLABORED ON RA. NO COMPLAINTS OF PAIN. IV SITE ON LH 20G INFUSING IVF. SKIN INTACT, WARM AND DRY TO TOUCH. CALL LIGHT WITHIN REACH. SAFETY PRECAUTIONS IN PLACE.
--- NOTE | 2022-08-19 21:07 | NUR ---
SCHEDULED IV ABX ADMINISTERED BY STEVE JULIAN. NO ADVERSE REACTION NOTED.
[2022-08-20] VITALS: BP 137/71
[2022-08-20] MEDS: NACL 0.9% 1,000 ML IV SCH (01:35)
--- NOTE | 2022-08-20 03:13 | NUR ---
PT SLEEPING. BREATHING EVEN AND UNLABORED. NO DISTRESS NOTED. NO SIGNS OF PAIN. SAFETY PRECAUTIONS IN PLACE.
--- NOTE | 2022-08-20 07:26 | NUR ---
ENDORSED PT TO DAY SHIFT NURSE DANILO FOR CONTINUITY OF CARE. ALL NEEDS MET THROUGHOUT SHIFT. PT IS IN STABLE CONDITION.
--- NOTE | 2022-08-20 07:27 | NUR ---
RECEIVED REPORT FROM MANAGEMENT RECRUITER NURSE FOR CONTINUITY OF CARE.
[2022-08-20 08:00] VITALS: BP 133/61
[2022-08-20 10:45] LABS: ANION GAP 14.6 (8-16); CARBON DIOXIDE 25.6 mmol/L (21-32); CREATININE 0.5 mg/dL (0.6-1.3); POTASSIUM 3.2 mmol/L (3.5-5.1)
[2022-08-20 10:49] LABS: BASOPHILS # (AUTO) 0.1 K/uL (0.00-0.22); BASOPHILS % (AUTO) 1.1 % (0.0-2.0); EOSINOPHILS # (AUTO) 0.2 K/uL (0-0.4); EOSINOPHILS % (AUTO) 1.7 % (0.0-4.0); HEMATOCRIT 36.2 % (36-48); HEMOGLOBIN 12.6 g/dL (12.0-16.0); LYMPHOCYTES # (AUTO) 2.2 K/uL (2.5-16.5); LYMPHOCYTES % (AUTO) 23.1 % (20.5-51.1); MEAN CORPUSCULAR HEMOGLOBIN 30 pg (27-31); MEAN CORPUSCULAR HGB CONC 35 g/dL (33-37); MEAN CORPUSCULAR VOLUME 85.7 fL (80-94); MONOCYTES # (AUTO) 0.9 K/uL (0.8-1.0); MONOCYTES % (AUTO) 9.1 % (1.7-9.3); NEUTROPHILS # (AUTO) 6.1 K/uL (1.8-7.7); PLATELET COUNT (AUTO) 274 K/uL (140-450); RED BLOOD CELL COUNT(AUTO) 4.22 MIL/uL (4.20-5.40); RED CELL DISTRIBUTION WIDTH 14.1 % (11.6-13.7); WHITE BLOOD COUNT (AUTO) 9.4 K/uL (4.8-10.8)
[2022-08-20 10:50] LABS: ALBUMIN 2.8 g/dL (3.4-5.0); TOTAL BILIRUBIN 3.1 mg/dL (0.0-1.0)
[2022-08-20] MEDS ORDERED: AMOX1TAB8 PO (11:14)
[2022-08-20] MEDS ORDERED: ACET-8905 PO (11:15)
[2022-08-20 11:30] VITALS: BP 133/61
--- NOTE | 2022-08-20 14:16 | NUR ---
08/20/22 RD INITIAL ASSESSMENT COMPLETED PLEASE REFER TO NUTRITION ASSESSMENT UNDER CARE ACTIVITY FOR ESTIMATED NUTRITIONAL NEEDS. 1. CONTINUE FULL LIQUID DIET TOLERATED PER MD 2. RECOMMEND ADDING CCHO, 60 GM TO FULL LIQUID DIET 3. WHEN/IF DIET READY TO BE ADVANCED, RECOMMEND LOW FAT CCHO 60 GM DIET TOLERATED PER HX OF CHOLECYSTECTOMY AND UNCONTROLLED BG 4. RD PROVIDED NUTRITION EDUCATION ON GENERAL HEALTHY DIET WITH HANDOUTS 5. RD TO FOLLOW-UP 3-5 DAYS, MODERATE RISK REVIEWED BY TALISHA HERNÁNDEZ RD
--- NOTE | 2022-08-20 15:27 | NUR ---
DISCHARGE PACKET GIVEN AND DISCUSSED WITH PT. PT IV AND NAME BAND REMOVED. BELONGINGS GATHERED BY SON. PT AMBULATED TO [facility]. DC TO HOME. PT IN STABLE CONDITION.
== END 2022-08-20 15:25 | disposition home or self-care (01) ==
LOC: MED 08:17 → MTU 14:39 → MMU 21:39
PROVIDERS: ADMIT Hospitalist; ATTEND Hospitalist
PROC: 0FC98ZZ Extirpation of Matter from Common Bile Duct, Via Natural or Artificial Opening Endoscopic (ICD-10-PCS; principal; 2022-08-20)
PROC: 0F798ZZ Dilation of Common Bile Duct, Via Natural or Artificial Opening Endoscopic (ICD-10-PCS; 2022-08-20)
PROC: BF101ZZ Fluoroscopy of Bile Ducts using Low Osmolar Contrast (ICD-10-PCS; 2022-08-20)
DX: K80.30 Calculus of bile duct with cholangitis, unspecified, without obstruction (principal); E87.1 Hypo-osmolality and hyponatremia; R65.10 Systemic inflammatory response syndrome (SIRS) of non-infectious origin without acute organ dysfunction; Z20.822 Contact with and (suspected) exposure to COVID-19; E80.6 Other disorders of bilirubin metabolism; K29.70 Gastritis, unspecified, without bleeding; Z90.49 Acquired absence of other specified parts of digestive tract
CPT/HCPCS: 36415; 71045; 80048; 80053; 80076; 81003; 83690; 83735; 84703; 85025; 85610; 87081; 93005; 96365; 96375; 99285; C1727; C1769; J1885; J2001; J2270; J2543; J2704; J3480; J3490; J7030; J7060; Q0092; Q9967